=== PATIENT | male | born 1960 | race Caucasian/White ===

== ENCOUNTER 2017-12-25 08:07 | Emergency (ER) | payer BC ==
[2017-12-25 08:28] VITALS: BP 126/72
[2017-12-25] MEDS ORDERED: Tetan/Diph/Pertus SYR(Tdap)* 0.5 ML SYR(BOOSTRIX) use SYR IM ONE (08:49)
--- NOTE | 2017-12-25 08:51 | UC ---
Laceration HPI - HPI Summary HPI Summary: PATIENT WAS TAKING HIS TRASH OUT THIS MORNING. THERE WAS A PIECE OF GLASS STICKING OUT THE SIDE OF THE BAG AND HE SUSTAINED A LACERATION TO HIS LEFT LOWER LEG. UNKNOWN DATE OF LAST TETANUS. - History Of Current Complaint Chief Complaint: UCLaceration Stated Complaint: LACERATION LEFT LEG Time Seen by Provider: 12/25/17 08:44 Hx Obtained From: Patient Mechanism Of Injury: Sharp Trauma Onset/Duration: Sudden Onset, Lasting Hours Severity: Moderate Pain Intensity: 0 Pain Scale Used: 0-10 Numeric - Allergies/Home Medications Allergies/Adverse Reactions: Allergies Allergy/AdvReac Type Severity Reaction Status Date / Time JAMILA Inhibitors Allergy Mild Rash Verified 12/25/17 08:21 Penicillins Allergy Unknown Unknown Verified 12/25/17 08:21 Reaction Details Home Medications: Home Medications Allopurinol TAB* [Zyloprim 300 MG TAB*] 300 mg PO DAILY 12/25/17 [History Confirmed 12/25/17] Atorvastatin* [Lipitor 20 MG*] 20 mg PO DAILY 12/25/17 [History Confirmed ] Colchicine* [Colcrys*] 0.6 mg PO DAILY 12/25/17 [History Confirmed 12/25/17] Nebivolol HCl [Bystolic] 20 mg PO DAILY 12/25/17 [History Confirmed 12/25/17] Spironolactone TAB* [Aldactone TAB 25 MG*] 25 mg PO DAILY 12/25/17 [History Confirmed 12/25/17] Valsartan/HCTZ 320/25(NF) [Diovan Hct 320/25(NF)] 1 tab PO DAILY 12/25/17 [ History Confirmed 12/25/17] PMH/Surg Hx/FS Hx/Imm Hx - Additional Past Medical History Additional PMH: GOUT Cardiovascular History: Hypertension - Surgical History Surgical History: None - Family History Known Family History: Negative: Hypertension - Social History Alcohol Use: Weekly Substance Use Type: None Smoking Status (MU): Never Smoked Tobacco - Immunization History Most Recent Tetanus Shot: UNKNOWN Review of Systems Constitutional: Negative Skin: Other - LACERATION Respiratory: Negative Cardiovascular: Negative Gastrointestinal: Negative All Other Systems Reviewed And Are Negative: Yes Physical Exam Triage Information Reviewed: Yes Appearance: Well-Appearing, No Pain Distress, Well-Nourished Vital Signs: Initial Vital Signs Temp 97 F 12/25/17 08:22 Pulse 78 05/25/18 08:22 Resp 18 12/25/17 08:22 BP 126/72 12/25/17 08:22 Pulse Ox 98 12/25/17 08:22 Vital Signs Reviewed: Yes Eyes: Positive: Conjunctiva Clear ENT: Positive: Hearing grossly normal Neck: Positive: Supple Respiratory: Positive: No respiratory distress, No accessory muscle use Cardiovascular: Positive: Pulses Normal Abdomen Description: Positive: Soft Musculoskeletal: Positive: No Edema Neurological: Positive: Alert Psychological: Positive: Age Appropriate Behavior Skin: Positive: Other - 4CM LINEAR LACERATION LEFT LATERAL LOWER LEG Laceration Repair - Laceration Repair 1 Description: Linear Laceration Size After Repair: Length (cm) - 4CM, Width (mm) - 0MM, Depth (mm) - 3MM Modified For Repair: No Irrigation With Pressure Irrigation Device: Yes Closure Material: Porsha - #4 Closure Method: Single Layer Laceration Course/Dx - Course/Dx Course Of Treatment: PT DECLINED LOCAL ANESTHESIA. WOUND CLEANSED AND 4 PORSHA PLACED WITHOUT DIFFICULTY. SKIN EDGES WELL APPROXIMATED. NO BLEEDING. - Differential Dx - Laceration/Wound Provider Diagnoses: 1. LACERATION REPAIR - LEFT LOWER LEG. 2. TDAP BOOSTER Discharge - Sign-Out/Discharge Documenting (check all that apply): Discharge/Admit/Transfer - Discharge Plan Condition: Stable Disposition: HOME Prescriptions: Cephalexin CAP* [Keflex 500 CAP*] 1,000 mg PO BID #20 cap Patient Education Materials: Laceration (ED) Referrals: Non Staff,Doctor [Primary Care Provider] - Additional Instructions: KEEP DRESSINGS IN PLACE AND DRY FOR THE FIRST 24 HRS. THEN YOU MAY REMOVE THE DRESSING AND GENTLY CLEANSE WITH SOAP AND WATER. PAT DRY AND RE-BANDAGE. AVOIND PROLONGED EXPOSURE TO WATER. APPLY THIN LAYER ANTIBIOTIC OINTMENT UNDER BANDAGE FOR FIRST 3-4 DAYS ONLY. CHANGE BANDAGE DAILY AND NEEDED IF IT BECOMES SOILED OR WET. SEEK FOLLOW-UP IF YOU DEVELOP SPREADING REDNESS OF THE SKIN, PURULENT DRAINAGE, FEVER, INCREASED PAIN OR ANY OTHER CONCERNING SYMPTOMS. RETURN FOR STAPLE REMOVAL IN 10 DAYS TETANUS IMMUNIZATION GIVEN (TDAP): You have been given an immunization against tetanus. Please record this in your records. In general, a booster is needed only once every 10 years. The tetanus shot protects against tetanus or "lockjaw," which is a complication of certain wound infections (the tetanus shot cannot protect against the actual infection). The immunization site may become warm and red due to local reaction. If this occurs, apply warm compresses and take aspirin or ibuprofen to reduce inflammation and discomfort. Return for evaluation if the reaction becomes severe. CALL THE NUMBER BELOW FOR ASSISTANCE IN ESTABLISHING WITH A PCP An additional resource available to assist in finding the appropriate physician for your health care needs is the [facility] ([facility]). You may contact them by calling [phone]. - Billing Disposition and Condition Condition: STABLE Disposition: HOME
== END 2017-12-25 09:26 | disposition home or self-care (01) ==
LOC: UCCORT 08:07
DX: S81.812A Laceration without foreign body, left lower leg, initial encounter (principal); I10 Essential (primary) hypertension; Z88.0 Allergy status to penicillin; Z88.6 Allergy status to analgesic agent; Z79.899 Other long term (current) drug therapy; W25.XXXA Contact with sharp glass, initial encounter; Y92.9 Unspecified place or not applicable
CPT/HCPCS: 12002; 90471; 90715; 99202; G0463

== ENCOUNTER 2018-01-05 08:42 | Emergency (ER) | payer BC ==
[2018-01-05 09:06] VITALS: BP 142/80
--- NOTE | 2018-01-05 09:19 | UC ---
HPI Wound/Suture Re-check - HPI Summary HPI Summary: here for staple removal laceration of left lower leg x 11 days ago, aliyah were placed here at the Urgent care has no complaints , the wound is healing well , no redness, mild discharge, - History Of Current Complaint Chief Complaint: UCSkin Stated Complaint: STAPLE REMOVAL (SEEN HERE) Time Seen by Provider: 01/05/18 09:10 Hx Obtained From: Patient Onset/Duration: Sudden Onset - 11 days ago, Still Present Severity: Moderate Pain Intensity: 0 Procedure Type: staple removal left lower leg Surgery Date: 12/25/17 - Allergies/Home Medications Allergies/Adverse Reactions: Allergies Allergy/AdvReac Type Severity Reaction Status Date / Time JAMILA Inhibitors Allergy Mild Rash Verified 01/05/18 08:58 Penicillins Allergy Unknown Unknown Verified 01/05/18 08:58 Reaction Details PMH/Surg Hx/FS Hx/Imm Hx - Additional Past Medical History Additional PMH: Gout Cardiovascular History: Hypertension - Surgical History Surgical History: None - Family History Known Family History: Negative: Hypertension - Social History Alcohol Use: Weekly Substance Use Type: None Smoking Status (MU): Never Smoked Tobacco - Immunization History Most Recent Tetanus Shot: 12/25/17 Review of Systems Constitutional: Negative Skin: Negative Eyes: Negative ENT: Negative Respiratory: Negative Cardiovascular: Negative Is Patient Immunocompromised?: No All Other Systems Reviewed And Are Negative: Yes Physical Exam Triage Information Reviewed: Yes Appearance: Well-Appearing, No Pain Distress, Well-Nourished Vital Signs: Initial Vital Signs Temp 98.2 F 01/05/18 09:00 Pulse 69 01/05/18 09:00 Resp 20 01/05/18 09:00 BP 142/80 01/05/18 09:00 Pulse Ox 95 01/05/18 09:00 Vital Signs Reviewed: Yes Eyes: Positive: Conjunctiva Clear ENT: Positive: Normal ENT inspection, Hearing grossly normal, Pharynx normal Neck: Positive: Supple, Nontender, No Lymphadenopathy Respiratory: Positive: Chest non-tender, Lungs clear, Normal breath sounds Cardiovascular: Positive: RRR, No Murmur, Pulses Normal Skin: Positive: Other - 3 cm laceration left lower leg s/p repair 11 days ago using aliyah, laceration is healing well, no erythema, no discharge, no pain , aliyah were removed x4 using the staple remover Course/Dx - Differential Dx - Laceration/Wound Provider Diagnoses: laceration left leg. staple removal Discharge - Sign-Out/Discharge Documenting (check all that apply): Discharge/Admit/Transfer - Discharge Plan Condition: Stable Disposition: HOME Patient Education Materials: Stitches Removal (ED) Referrals: No Primary Care Phys,NOPCP [Primary Care Provider] - If Needed Additional Instructions: keep the wound clean and dry , follow up if any sign of infection , including redness, swelling, discharge , pain , fever or chills - Billing Disposition and Condition Condition: STABLE Disposition: Home
== END 2018-01-05 09:16 | disposition home or self-care (01) ==
LOC: UCCORT 08:42
DX: S81.812D Laceration without foreign body, left lower leg, subsequent encounter (principal); X58.XXXD Exposure to other specified factors, subsequent encounter; Y93.9 Activity, unspecified; Y92.9 Unspecified place or not applicable; Z88.8 Allergy status to other drugs, medicaments and biological substances; I10 Essential (primary) hypertension; Z88.0 Allergy status to penicillin